=== PATIENT | male | born 1990 | race American Indian/Alaskan Native ===

== ENCOUNTER 2019-06-03 17:50 | Emergency (ER) | payer OTHER ==
[2019-06-03] MEDS ORDERED: PENICILLIN G BENZATHINE 1.2 MILLION UNIT/2 ML INJ IM ONE (18:08)
--- NOTE | 2019-06-03 18:08 | Emergency Department Report ---
ED ENT HPI - General Chief complaint: Dental/Oral Stated complaint: TOOTH PAIN Time Seen by Provider: 06/03/19 18:07 Source: patient Mode of arrival: Ambulatory Limitations: No Limitations - History of Present Illness Initial comments: 28 YO MALE WITH UPPER LEFT DENTAL PAIN. SAW DMD AND IN ON PO PCN/NORCO AND MOTRIN BUT STILL HAVING PAIN. THEY SENT HIM HERE FOR SHOT ABC INTACT NO ABSCESS MD complaint: tooth pain - Related Data Allergies Allergy/AdvReac Type Severity Reaction Status Date / Time No Known Allergies Allergy Unverified 06/03/19 17:51 ED Dental HPI - General Chief complaint: Dental/Oral Stated complaint: TOOTH PAIN Time Seen by Provider: 06/03/19 18:07 Source: patient Mode of arrival: Ambulatory Limitations: No Limitations - Related Data Allergies Allergy/AdvReac Type Severity Reaction Status Date / Time No Known Allergies Allergy Unverified 06/03/19 17:51 ED Review of Systems ROS: Stated complaint: TOOTH PAIN Other details as noted in HPI Comment: All other systems reviewed and negative ED Past Medical Hx - Past Medical History Previous Medical History?: No - Surgical History Past Surgical History?: No - Family History Family history: no significant - Social History Smoking Status: Current Some Day Smoker Substance Use Type: Alcohol ED Physical Exam - General Limitations: No Limitations General appearance: alert, in no apparent distress - Head Head exam: Present: atraumatic, normocephalic - Eye Eye exam: Present: normal appearance - ENT ENT exam: Present: mucous membranes moist - Expanded ENT Exam Expanded Mouth exam: Present: tongue normal. Absent: drooling, trismus, muffled voice, tongue elevation Teeth exam: Present: dental caries 1 - Other (caries) Throat exam: Positive: normal inspection - Neck Neck exam: Present: normal inspection - Respiratory Respiratory exam: Present: normal lung sounds bilaterally. Absent: respiratory distress - Cardiovascular Cardiovascular Exam: Present: regular rate, normal rhythm. Absent: systolic murmur, diastolic murmur, rubs, gallop - GI/Abdominal GI/Abdominal exam: Present: soft, normal bowel sounds - Rectal Rectal exam: Present: deferred - Extremities Exam Extremities exam: Present: normal inspection - Back Exam Back exam: Present: normal inspection - Neurological Exam Neurological exam: Present: alert, oriented X3 - Psychiatric Psychiatric exam: Present: normal affect, normal mood - Skin Skin exam: Present: warm, dry, intact, normal color. Absent: rash ED Course Vital Signs 06/03/19 18:07 Temperature 98.6 F Pulse Rate 61 Respiratory 16 Rate Blood Pressure 124/88 O2 Sat by Pulse 98 Oximetry ED Medical Decision Making - Medical Decision Making Is under dmd care PO meds not helping - also on motrin and norco here for shot per DMD Bicillin IM dc home with dmd follow up abc intact vss no drooling no trismus Vital Signs 06/03/19 18:07 Temperature 98.6 F Pulse Rate 61 Respiratory 16 Rate Blood Pressure 124/88 O2 Sat by Pulse 98 Oximetry Critical care attestation.: If time is entered above; I have spent that time in minutes in the direct care of this critically ill patient, excluding procedure time. ED Disposition Clinical Impression: Pain, dental, Dental caries Disposition: DC- TO HOME OR SELFCARE Is pt being admited?: No Does the pt Need Aspirin: No Condition: Stable Instructions: Toothache (ED) Additional Instructions: CONTINUE YOUR CURRENT MEDS SEE DMD CORKY LET THEM KNOW YOU GOT BICILLIN LA 1.2 MU IM Referrals: [facility] [Outside] - 3-5 Days Time of Disposition: 18:11
[2019-06-03 18:09] VITALS: BP 124/88
== END 2019-06-03 18:15 | disposition home or self-care (01) ==
LOC: ED 17:50
DX: K02.9 Dental caries, unspecified (principal)
CPT/HCPCS: 96372; 99282; J0561